=== PATIENT | male | born 1970 | race Caucasian/White ===

== ENCOUNTER → 2024-02-18 08:16 | Outpatient (BNVA) | payer OTHER, SELFPAY | PROVIDERS: Family Provider Family Medicine; PCP Family Medicine; Visit Provider Family Medicine | DX: M10.9 Gout, unspecified (principal); Z13.6 Encounter for screening for cardiovascular disorders; M19.90 Unspecified osteoarthritis, unspecified site | CPT/HCPCS: 80053; 80061; 84550 ==